=== PATIENT | male | born 1985 | race Two or more races ===

== ENCOUNTER 2022-05-17 03:57 | Emergency (ER) | payer OTHER ==
[~2022-05-17] VITALS: Ht 167.6 cm; Wt 104.3 kg
[2022-05-17 04:05] VITALS: BP 160/101
== END 2022-05-17 07:57 ==
LOC: ER 03:59
DX: M25.512 Pain in left shoulder (principal); E11.9 Type 2 diabetes mellitus without complications; F17.200 Nicotine dependence, unspecified, uncomplicated; Z98.890 Other specified postprocedural states
CPT/HCPCS: 73030-TC